=== PATIENT | male | born 1940 | race Caucasian/White ===

== ENCOUNTER 2023-02-03 09:14 | Outpatient (AMB) | payer OTHER, SELFPAY ==
--- NOTE | 2023-02-03 09:37 | AM.OFFWIN_ITS ---
Intake Vital Signs 02/03/23 09:39 Height 5 ft 9 in Weight 182 lb BMI 26.9 BP 114/72 Blood Pressure Location Rt brachial Position Sitting Pulse 85 Pulse Source Pulse Oximeter Temp 99.7 F Temp Source Temporal Artery Scan Pulse Oximetry (%) 95 Oxygen Delivery Method Room Air Intake Visit Reasons: HEADWAITER/HEADWAITRESS, sore throat, chest congestion (masked) Intake Note: Pt is here c/o sore throat, dry cough and chest congestion. Patient Tobacco Use Status: Never used Tobacco Allergies No Known Allergies Allergy (Verified 02/03/23 09:40) Do you need a note to return to daycare/school/sports/work: No HPI HPI Comments History of Present Illness Details 83-year-old male who presents for sinus pressure nasal congestion and productive sputum. Patient states the past and has had a fever for 1 sinus congestion and pressure in his face as well as brown mucus in his 4th finger. Denies any chest pain or shortness of breath PFSH Social History Patient Tobacco Use Status: Never used Tobacco Review of Systems Const All systems reviewed & are unremarkable except as noted in HPI and below ENT Reports nasal congestion, Reports nasal discharge, Reports sinus pressure and Reports sore throat Physical Exam Vital Signs: Last Vital Signs Temp 99.7 F 02/03/23 09:39 Pulse 85 02/03/23 09:39 BP 114/72 02/03/23 09:39 Pulse Ox 95 02/03/23 09:39 Oxygen Delivery Method Room Air 02/03/23 09:39 BMI result Body Mass Index 26.9 Const General: cooperative, no acute distress and alert Orientation/consciousness: patient oriented x3 Limitations: no limitations HEENT Other: TTP over the maxillary sinus Head: Yes normal to inspection Ears: hearing grossly normal bilaterally and external ears normal General nose exam: Normal external nose present Eyes General: appearance normal, both eyes and all related structures Neck Neck: Yes normal visual inspection Chest Chest palpation & inspection: normal inspection of the chest Resp Effort & Inspection: normal respiratory effort, able to speak in complete sentences and no audible wheezes Auscultation: clear to auscultation bilaterally Cardio Rate: regular rate Rhythm: regular rhythm GI Inspection: Yes normal to inspection Palpation (GI): Soft to palpation and nontender Skin General skin exam: no rashes or lesions noted Neuro General: patient oriented x3 Psych Appearance: grossly normal Mental Status: mental status grossly normal Speech and movement: Normal speech and movement present Affect: normal affect Attitude: cooperative Thought process: Normal thought process present Thought content: Normal thought content present Results AMB Rapid Strep AMB Rapid Strep Negative Last Edit by Rosa Roberts CMA on 02/03/23 10:06 Results Reviewed Results Reviewed: Laboratory Last Values Strep Scn [facility] Negative 02/03/23 10:05 Assessment & Plan Assessment & Plan (1) Sinusitis: Code(s): J32.9 - Chronic sinusitis, unspecified Qualifiers: Chronicity: acute Recurrence: not specified as recurrent Sinusitis location: maxillary Qualified Code(s): J01.00 - Acute maxillary sinusitis, unspecified Plan: VSS. Exam notable for TTP over min for sinuses. Given productive sputums as well as low-grade fever symptoms consistent with sinusitis will prescribe Augmentin Discharge instructions, follow up and treatment are discussed with patient in my usual fashion. Alternatives in treatment are also discussed. The patient will return for worsening symptoms or as needed. Advised that any labs/imaging ordered will be followed up on and contact made if further treatment needed. Counseled that patient's condition may require further evaluation and/or treatment. Symptoms of concern for worsening disorder discussed in detail in my customary manner. Patient does verbalize understanding of the plan, there are no apparent barriers to communication. The patient is given the opportunity to ask questions and have them answered to his/her satisfaction Orders: Orders AMB Rapid Strep Screen Today Z13.9 - Encounter for screening, unspecified Medications: New amoxicillin-pot clavulanate 875-125 mg 1 tab PO BID 7 days 14 tabs 0RF azelastine administer into each nostril 1 spray intranasal BID 30 mL 0RF Coding Level of Care Code New Pt Level 3 (96465) Diagnoses Acute maxillary sinusitis, recurrence not specified J01.00 Chronicity: acute Recurrence: not specified as recurrent Sinusitis location: maxillary
[2023-02-03 09:39] VITALS: BP 114/72; PULSE 85; TEMP 37.6; O2SAT 95; BMI 26.9
== END 2023-02-03 10:07 | disposition home or self-care (01) ==
PROVIDERS: Visit Provider Physician Assistant
DX: J01.00 Acute maxillary sinusitis, unspecified (principal); J02.9 Acute pharyngitis, unspecified
CPT/HCPCS: 87880; 99203